=== PATIENT | female | born 1995 | race Hispanic/Latino ===

== ENCOUNTER 2023-12-24 03:39 | Inpatient (IN) | payer OTHER ==
[2023-12-24] MEDS ORDERED: AZITHROMYCIN/DEXTROSE 500 MG/250 ML BAG IV STA (04:10)
[2023-12-24] MEDS ORDERED: LACTATED RINGER'S 1,000 ML IV PRN (04:15)
[2023-12-24] MEDS ORDERED: SOD+POT BICARB/CITRIC ACID 2 EA TABLET.EFF PO ONE (04:15)
[2023-12-24 04:26] LABS: HEMATOCRIT 38.8 % (35.0-50.0); HEMOGLOBIN 12.8 g/dL (12.0-18.0); MCH 27.6 (27-36); MCHC 32.9 g/dl (30-36); MCV 83.9 fl (81-99); RBC 4.62 M/ul (4.3-5.7); RDW 14.1 (10.5-15.0)
[2023-12-24 04:49] LABS: AMPHETAMINES, URINE NEGATIVE (NEGATIVE); BARBITURATES, URINE NEGATIVE (NEGATIVE); BENZODIAZEPINE, URINE NEGATIVE (NEGATIVE); BUPRENORPHINE, URINE NEGATIVE (NEGATIVE); CANNABINOID, URINE NEGATIVE (NEGATIVE); COCAINE, URINE NEGATIVE (NEGATIVE); ECSTASY, URINE NEGATIVE (NEGATIVE); FENTANYL, URINE NEGATIVE (NEGATIVE); METHADONE, URINE NEGATIVE (NEGATIVE); OPIATES, URINE NEGATIVE (NEGATIVE); OXYCODONE, URINE NEGATIVE (NEGATIVE); PHENCYCLIDINE, URINE NEGATIVE (NEGATIVE)
[2023-12-24] MEDS ORDERED: KETOROLAC TROMETHAMINE 30 MG/ML VIAL ONE (04:52)
[2023-12-24] MEDS ORDERED: DEXAMETHASONE SOD PHOS 4 MG/ML VIAL ONE ×2 (04:52→05:30)
[2023-12-24] MEDS ORDERED: BUPIVACAINE 0.75% IN DEXTROSE 2 ML AMP ONE (04:52)
[2023-12-24] MEDS ORDERED: PHENYLEPHRINE HCL 10 MG/ML VIAL ONE (04:52)
[2023-12-24] MEDS ORDERED: ePHEDrine sulfate 50 MG/ML AMP ONE (04:52)
[2023-12-24] MEDS ORDERED: ondansetron HCL 4 MG/2 ML VIAL ONE (04:52)
[2023-12-24] MEDS ORDERED: LIDOCAINE HCL 2% 5 ML SDV ONE (04:52)
[2023-12-24] MEDS ORDERED: OXYTOCIN 10 UNITS/ML VIAL ONE ×2 (04:53)
[2023-12-24] MEDS ORDERED: fentaNYL citrate 100 MCG/2 ML VIAL ONE (04:53)
[2023-12-24] MEDS ORDERED: SODIUM CHLORIDE 0.9% 20 ML IV ONE (04:54)
[2023-12-24 05:04] LABS: ABO O; RH NEGATIVE
[2023-12-24 05:05] LABS: ANTIBODY SCREEN NEGATIVE
[2023-12-24] MEDS ORDERED: ACETAMINOPHEN 1,000 MG/100 ML VIAL ONE (05:22)
[2023-12-24] MEDS ORDERED: dexmedeTOMIDine HCl 200 MCG/2 ML VIAL ONE (05:29)
[2023-12-24] MEDS ORDERED: SODIUM CHLORIDE 0.9% 60 ML IV ONE (05:30)
[2023-12-24] MEDS ORDERED: Ropivacaine HCl 0.5% 30 ML VIAL ONE (05:30)
[2023-12-24] MEDS ORDERED: LACTATED RINGER'S 1,000 ML IV ONE (05:42)
[2023-12-24] MEDS ORDERED: propofoL 200 MG/20 ML VIAL ONE (05:44)
[2023-12-24] MEDS ORDERED: OXYCODONE HCL 5 MG TAB PO PRN (06:45)
[2023-12-24] MEDS ORDERED: PROMETHAZINE HCL 25 MG TAB PO PRN (06:45)
[2023-12-24] MEDS ORDERED: METOCLOPRAMIDE HCL 10 MG/2 ML SDV IV PRN (06:45)
[2023-12-24] MEDS ORDERED: ondansetron HCL 4 MG/2 ML VIAL IV PRN ×3 (06:45→07:00)
[2023-12-24] MEDS ORDERED: PROMETHAZINE HCL 25 MG SUPP PR PRN (06:45)
[2023-12-24] MEDS ORDERED: PROCHLORPERAZINE EDISYLATE 10 MG/2 ML VIAL IV PRN (06:45)
[2023-12-24] MEDS ORDERED: OXYTOCIN/0.9 % SODIUM CHLORIDE 500 ML IV SCH (06:45)
[2023-12-24] MEDS ORDERED: bisacodyL 10 MG SUPP PR PRN (06:45)
[2023-12-24] MEDS ORDERED: OXYCODONE/APAP 5/325 TAB PO PRN (06:45)
[2023-12-24] MEDS ORDERED: LACTATED RINGER'S 1,000 ML IV SCH (06:50)
[2023-12-24] MEDS ORDERED: diphenhydrAMINE HCL 50 MG/ML VIAL IV PRN (07:00)
[2023-12-24] MEDS ORDERED: KETOROLAC TROMETHAMINE 30 MG/ML VIAL IV PRN (07:00)
[2023-12-24] MEDS ORDERED: SIMETHICONE 125 MG TABLET CHEWABLE PO SCH (07:00)
[2023-12-24] MEDS ORDERED: HYDROmorphone HCL 1 MG/ML SYR IV PRN (07:00)
[2023-12-24] MEDS ORDERED: ACETAMINOPHEN 325 MG TAB PO PRN (07:00)
[2023-12-24] MEDS ORDERED: CEFAZOLIN SODIUM 2 GM/20 ML SYR IV SCH (07:00)
[2023-12-24] MEDS ORDERED: MORPHINE SULFATE 4 MG/ML VIAL IV PRN (07:00)
[2023-12-24] MEDS ORDERED: IBLOOD GLUCOSE TEST STRIP 1 EA TEST VI PRN (07:00)
[2023-12-24] MEDS ORDERED: diphenhydrAMINE HCL 25 MG CAP PO PRN (07:00)
[2023-12-24] MEDS ORDERED: NALOXONE HCL 0.4 MG SYR IV PRN ×2 (07:00)
--- NOTE | 2023-12-24 07:07 | NUR ---
12/24/23 0707 Maame Roman 0641 PT ARRIVED IN PACU WIDE AWAKE WITH NO C/O'S. DAD HOLDING BABY AND FBC RN AT BEDSIDE. 0650 MOM HOLDING BABY AND FBC RN LEFT ROOM. 0707 CONTINUES TO HOLD BABY WITH NO C/O'S.
[2023-12-24 07:08] VITALS: BP 104/60
[2023-12-24] MEDS ORDERED: KETOROLAC TROMETHAMINE 30 MG/ML VIAL IV SCH (08:00)
[2023-12-24] MEDS ORDERED: metroNIDAZOLE 250 MG TAB PO SCH (08:00)
[2023-12-24] MEDS ORDERED: CEPHALEXIN MONOHYDRATE 500 MG CAP PO SCH (09:00)
[2023-12-24] MEDS ORDERED: SENNOSIDES/DOCUSATE 1 EA TAB PO SCH (09:00)
[2023-12-24] MEDS ORDERED: ENOXAPARIN SODIUM 40 MG/0.4 ML SYR SUB-Q SCH (21:00)
[2023-12-25] MEDS ORDERED: IBUPROFEN 600 MG TAB PO SCH ×2 (02:00→08:00)
[2023-12-25] MEDS ORDERED: LACTATED RINGER'S 1,000 ML IV SCH (05:00)
[2023-12-25 05:43] LABS: HEMATOCRIT 32.5 % (35.0-50.0); HEMOGLOBIN 10.8 g/dL (12.0-18.0); MCH 28.1 (27-36); MCHC 33.3 g/dl (30-36); MCV 84.4 fl (81-99); RBC 3.85 M/ul (4.3-5.7)
[2023-12-25 06:59] LABS: ABO O; ANTIBODY SCREEN NEGATIVE; RH NEGATIVE
[2023-12-25] MEDS ORDERED: ondansetron HCL 4 MG/2 ML VIAL IV PRN (07:00)
[2023-12-25 07:08] LABS: FETAL HEMOGLOBIN SCREEN NEGATIVE; RHIG DOSE 1; RHIG VIAL 1 RG22K01-V
[2023-12-25 07:09] LABS: RHIG STATUS CANDIDATE
--- NOTE | 2023-12-25 10:09 | PR ---
[facility] [address] [facility] [address] [place], [place] [address] Signed PP Progress Notes Datetime Report Generated by CPN: 12/25/2023 10:09 SUBJECTIVE: [id number] Pain: Within Normal Limits Nausea/Vomiting: Denies Flatus: Yes Vital Signs: [id number] Vital Signs: Reviewed; Within Normal Limits Cardiovascular: Normal Respiratory: Normal Abdomen/Uterus: Abnormal Lochia: Normal Vulva/Perineum: Not Done Breasts: Not Done CVA Tenderness: Not Done Extremities: Normal Incision: Normal Progress: Abnormal Exam Comments: Abdomen with active BS. Fundus firm, NT @ U-2. H/H 10.8/32.5, WBC 14.3, plat 263k IMPRESSION/PLAN/PROCEDURES: [id number] Impression: Normal Progression Other Plans: ambulate, shower Procedures: Rhogam Progress Notes: Doing well. Will increase activity w/ probable discharge in am. Signing Physician: Janna Mock MD Copies: ~ *Electronically Signed* 12/25/23 1009 JANNA MOCK MD PATIENT NAME: MAHINEOHOMER PROGRESS NOTE DATE OF : 95 PHYSICIAN: JANNA MOCK MD RPT #: [id number] REPORT IS CONFIDENTIAL AND NOT TO BE RELEASED WITHOUT AUTHORIZATION
--- NOTE | 2023-12-25 11:27 | OR ---
[address] [address] Signed DATE OF OPERATION: SURGEON: Collin Cowart LICENSED ACUPUNCTURIST SURGEON: Sol GAVIN PREOPERATIVE DIAGNOSES: 1. History of prior . 2. Active labor. 3. premature rupture of membranes. POSTOPERATIVE DIAGNOSES: 1. History of prior . 2. Active labor. 3. premature rupture of membranes. PROCEDURE PERFORMED: Repeat low transverse section. ANESTHESIA: Spinal. ESTIMATED BLOOD LOSS: 550 mL. IV FLUIDS: Lactated ringer's 1000 mL. URINARY OUTPUT: 25 mL. COMPLICATIONS: None. FINDINGS: Male infant born in breach presentation. weight and Apgars pending. Normal uterus, tubes and ovaries. Adhesions of the omentum. INDICATIONS: The patient is a 28-year-old -0-0-1 at 36 weeks and 5 days, who presented to labor Electronically Signed By: STEVEN SANCHEZ MD 12/25/23 1127 PATIENT NAME: HOMER CHAMPAGNE OPERATIVE REPORT DATE OF : [birth year] REPORT #: [id number] PHYSICIAN: STEVEN SANCHEZ MD PCP: FRANCISCO POLANCO MD REPORT IS CONFIDENTIAL AND NOT TO BE RELEASED WITHOUT AUTHORIZATION [facility] [address] [place] [id number] Signed and delivery in active labor with rupture of membranes. She was admitted and taken to the OR for repeat section. After prepping the abdomen and vagina, the patient was noted to have one foot protruding from the vagina. A decision was then made to proceed immediately with the primary low transverse section. Prior to entering into the operating room, the procedure was described to the patient in detail including possible risk of bleeding, infection, injury to surrounding structures and organs, and possible need for further surgery, hysterectomy or for unknown causes of the patient or baby. Informed consent was obtained prior to proceeding with the procedure. DESCRIPTION OF PROCEDURE: The patient was taken to the operating room where a time-out was performed to confirm the correct patient and correct procedure. Spinal anesthesia was adequately established and prophylactic IV antibiotics were administered. The patient was then placed in the dorsal supine position with a left tilt of the hips. Pressure points were padded and the patient was then prepped and draped in the usual sterile fashion for a Pfannenstiel skin incision. An incision was made in the skin with a surgical scalpel and sharp dissection was carried out over the subsequent layers of tissue including the fascia. The fascia was incised in the midline and the fascial incision was extended bilaterally using curved De La Cruz scissors. The inferior edge of the fascial incision was grasped with Avelina clamps, tented up in the underlying rectus muscles, were dissected off bluntly and sharply using curved De La Cruz scissors. Attention was then turned to the superior edge, which was grasped with Avelina clamps, tented up and the underlying rectus muscles were dissected off bluntly and sharply using her De La Cruz scissors. The rectus muscles were then divided and the midline and the peritoneum was identified, tented up with hemostats at its upper margin taking care to avoid the bladder and then into sharply digitally. The peritoneal incision was then extended superiorly and inferiorly digitally with good visualization of the bladder. At this time, there were noted adhesions of the omentum, which were taken down using the LigaSure. At this time, an Gray retractor was then placed into the abdomen. Next, a bladder flap was created by grasping the vesicouterine peritoneum with Albanian forceps and cutting laterally to both sides using the Metzenbaum scissors. The lower uterine segment was then incised using a scalpel. The uterine incision was extended bilaterally digitally. The buttocks were then identified and brought to the uterine incision with a combination of traction and fundal pressure. The buttocks were delivered followed by the legs. The baby was rotated and the right arm was delivered Electronically Signed By: STEVEN SANCHEZ MD 12/25/23 1127 PATIENT NAME: HOMER CHAMPAGNE OPERATIVE REPORT DATE OF : 95 REPORT #: [id number] PHYSICIAN: STEVEN SANCHEZ MD PCP: FRANCISCO POLANCO MD REPORT IS CONFIDENTIAL AND NOT TO BE RELEASED WITHOUT AUTHORIZATION [address] [address] Signed followed by the delivery of the left arm. Next, the head was delivered. On delivery, the cord was clamped and cut. The was then passed off to the table to the awaiting team for further care. No nuchal cord was identified upon delivery. Cord gases were collected. Cord blood was also collected. The placenta was delivered spontaneously and intact with a 3-vessel cord. Oxytocin was administered by IV infusion to enhance uterine contractions. The uterus was then sewn while leaving the uterus in place. The uterine incision was reapproximated with 0 Monocryl in a locked fashion. A second imbricating layer of 0 Monocryl was applied in a non-locked fashion. Non-hemostatic areas were reinforced using a Monocryl and [id number] sutures. Good hemostasis was confirmed. At this time, Leonor was used over the uterine incision. The pericolic gutters were cleared off all clots and debris. The peritoneum was closed using 2-0 Vicryl in a running non-locked fashion. The muscular layer was closed using 0 Vicryl in an interrupted fashion. The fascia was reapproximated using 0 Vicryl in a running non-locked fashion from one edge of the incision to the midline followed by another suture of 0 Vicryl from the opposite edge running to the midline. The subcutaneous layer was closed using 3-0 Vicryl in a running non-locked fashion. The skin was approximated using alexis. All needle, sponge and instrument counts were noted to be correct x2 at the end of the procedure. The patient tolerated the procedure well and was transferred to recovery room in stable condition. Collin Cowart/BROCKL /[id number] Copies: ~ Electronically Signed By: STEVEN SANCHEZ MD 12/25/23 1127 PATIENT NAME: HOMER CHAMPAGNE OPERATIVE REPORT DATE OF : [birth year] REPORT #: [id number] PHYSICIAN: STEVEN SANCHEZ MD PCP: FRANCISCO POLANCO MD REPORT IS CONFIDENTIAL AND NOT TO BE RELEASED WITHOUT AUTHORIZATION
--- NOTE | 2023-12-26 10:48 | PR ---
[facility] [address] [facility] [place], [place] [address] Signed PP Progress Notes Datetime Report Generated by DIEUDONNE: 12/26/2023 10:48 SUBJECTIVE: [id number] Pain: Within Normal Limits Nausea/Vomiting: Denies Flatus: Yes Bowel Movement: Yes Vital Signs: [id number] Vital Signs: Reviewed; Within Normal Limits Cardiovascular: Not Done Respiratory: Not Done Abdomen/Uterus: Normal Lochia: Normal Vulva/Perineum: Not Done Breasts: Not Done CVA Tenderness: Not Done Extremities: Normal Incision: Normal Progress: Normal Exam Comments: Abdomen with active BS. Fundus firm, NT @ U-2. H/H 10.8/32.5, WBC 14.3, plat 263k IMPRESSION/PLAN/PROCEDURES: [id number] Impression: Normal Progression Plan: Discharge Other Plans: ambulate, shower Procedures: None Progress Notes: S: 28 yo s/p repeat delivery. POD/PPD#2. Doing well. Denies PARRA, CP, SOB, F/C, N/V, RUQ, changes in vision. Tolerating regular diet. Ambulating, voiding on own, pain controlled. No concerns or complaints. O: AFVSS Abd: Soft. Appropriately TTP. Non-distended. Incision C/D/I. No erythema or drainage. Shivani in place. Musc: MICHEL. No C/C/E. A/P: 28 yo s/p repeat delivery. POD/PPD#2. Doing well. Meeting all hospital milestones. WIll leave shivani in place. Patient to return on Friday for pediatriac evaluation and staple removal at that time. Signing Physician: Jay Polanco MD *Electronically Signed* 12/26/238 JAY POLANCO MD PATIENT NAME: HOMER CHAMPAGNE PROGRESS NOTE DATE OF : 95 PHYSICIAN: JAY POLANCO MD RPT #: [id number] REPORT IS CONFIDENTIAL AND NOT TO BE RELEASED WITHOUT AUTHORIZATION [address] [address] Signed Copies: ~ *Electronically Signed* 12/26/23 1048 JAY POLANCO MD PATIENT NAME: HOMER CHAMPAGNE PROGRESS NOTE DATE OF : 95 PHYSICIAN: JAY POLANCO MD RPT #: [id number] REPORT IS CONFIDENTIAL AND NOT TO BE RELEASED WITHOUT AUTHORIZATION
== END 2023-12-26 11:45 | disposition home or self-care (01) | DRG 786 ==
LOC: FBCO 03:39 → FBC 04:02
PROVIDERS: ADMIT Obstetrics & Gynecology; ATTEND Obstetrics & Gynecology
PROC: 4A033R1 Measurement of Arterial Saturation, Peripheral, Percutaneous Approach (ICD-10-PCS; 2023-12-24)
PROC: 10D00Z1 Extraction of Products of Conception, Low, Open Approach (ICD-10-PCS; principal; 2023-12-24 04:30)
DX: O34.211 Maternal care for low transverse scar from previous cesarean delivery (principal); O60.14X0 Preterm labor third trimester with preterm delivery third trimester, not applicable or unspecified; O42.013 Preterm premature rupture of membranes, onset of labor within 24 hours of rupture, third trimester; Z3A.36 36 weeks gestation of pregnancy; Z37.0 Single live birth; O32.1XX0 Maternal care for breech presentation, not applicable or unspecified; O62.3 Precipitate labor
CPT/HCPCS: 01961; 36415; 76942; 80307; 82803; 83030; 85027; 86850; 86900; 86901; A9270; J0131; J0456; J0690; J1100; J1650; J1885; J2001; J2371; J2405; J2590; J2704; J2790; J2795; J3010; J7121